=== PATIENT | male | born 1995 | race Caucasian/White ===

== ENCOUNTER 2022-04-28 23:49 | Observation (INO) ==
[2022-04-29 00:58] LABS: Basophils % 0.1 %; Eosinophils # 0.2 K/mcL (0.0-0.6); Eosinophils % 1.2 %; Hematocrit 49.9 % (37.5-50.1); Immature Granulocytes % 0.5 % (0-4); Lymphocytes % 15.3 %; Mean Corpuscular HGB Conc 34.1 g/dL (31.6-35.5); Mean Corpuscular Hemoglobin 29.8 pg (28.0-33.3); Mean Corpuscular Volume 87.4 fL (83.0-100.0); Mean Platelet Volume 9.9 fL (9.4-12.4); Monocytes # 0.6 K/mcL (0.0-1.3); Monocytes % 4.4 %; Neutrophils # 10.1 K/mcL (1.6-8.9); Platelet Count 227 K/mcL (140-400); Red Blood Count 5.71 M/mcL (4.19-5.50); Red Cell Distribution Width 12.1 % (11.5-14.5); Segmented Neutrophils % 78.5 %; White Blood Count 12.9 K/mcL (4.3-11.1)
[2022-04-29 01:01] LABS: BUN/Creatinine Ratio 17 (6-26); Blood Urea Nitrogen 17 mg/dL (6-20); Calcium 9.3 mg/dL (8.6-10.3); Carbon Dioxide 25 mEq/L (23-29); Chloride 100 mEq/L (98-107); Glucose 107 mg/dL (70-105); Osmolality,Calculated 278 (280-300); Potassium 4.1 mEq/L (3.5-5.1); Sodium 133 mEq/L (136-145)
[2022-04-29] MEDS ORDERED: Iopamidol - 370 500 ML MLS IVP ONE (02:07)
[2022-04-29] MEDS ORDERED: Ketorolac 30 MG/ML VIAL IVP ONE (02:09)
[2022-04-29] MEDS ORDERED: *HR* FentaNYL (PF) 100 MCG/2 ML VIAL IVP ONE (02:09)
[2022-04-29] MEDS ORDERED: Vancomycin (wt based) 1,000 MG VIAL IV ONE (02:09)
[2022-04-29] MEDS ORDERED: Vancomycin 1,500 MG/265 ML IV.SOLN IVPB ONE (02:20)
[2022-04-29] MEDS ORDERED: 0.9 % Sodium Chloride 1,000 ML IVC ONE (05:25)
[2022-04-29] MEDS ORDERED: cefTRIAXone 1,000 MG in Water for inj. (sterile) 10 ML IVP ONE (05:45)
[2022-04-29] MEDS ORDERED: Tdap (Boostrix) Vaccine 0.5 ML SYRINGE IM ONE (08:11)
[2022-04-29] MEDS ORDERED: Ondansetron 4 MG/2 ML VIAL IVP PRN (08:13)
[2022-04-29] MEDS ORDERED: Acetaminophen 325 MG TABLET PO PRN (08:13)
[2022-04-29] MEDS ORDERED: *HR* OxyCODONE Immed Rel 5 MG TABLET PO PRN ×2 (08:13→12:45)
[2022-04-29] MEDS ORDERED: Naloxone 0.4 MG/ML INJ IVP PRN (08:13)
[2022-04-29] MEDS ORDERED: Famotidine 20 MG/2 ML VIAL IVP ONE (10:26)
[2022-04-29] MEDS ORDERED: Acetaminophen IV 1,000 MG/100 ML BAG IVPB ONE (10:26)
[2022-04-29] MEDS ORDERED: CeFAZolin Syr 2,000MG/20 ML 2,000 MG/20 ML SYRINGE IVPB ONE (10:50)
[2022-04-29] MEDS: Ringers Solution, Lactated 1,000 ML IVC SCH (11:09)
[2022-04-29] MEDS ORDERED: Lidocaine -MPF 2% 5 ML VIAL ONE (11:31)
[2022-04-29] MEDS ORDERED: *HR* FentaNYL (PF) 100 MCG/2 ML VIAL ONE (11:31)
[2022-04-29] MEDS ORDERED: Ondansetron 4 MG/2 ML VIAL ONE (11:31)
[2022-04-29] MEDS ORDERED: *HR* Propofol 200 MG/20 ML VIAL IVP ONE (11:32)
[2022-04-29] MEDS ORDERED: *HR* Midazolam HCl 2 MG/2 ML VIAL ONE (11:32)
[2022-04-29] MEDS ORDERED: *HR* HYDROMORPHONE 2 MG/ML VIAL ONE (12:07)
[2022-04-29] MEDS: *HR* HYDROmorphone (PF) 1 MG/ML SYRINGE IVP PRN ×4 (13:09→13:42)
[2022-04-29] MEDS: Vancomycin 1,500 MG/265 ML IV.SOLN IVPB SCH (18:32)
[2022-04-29] MEDS: levoFLOXacin 750 MG/150 ML 750 MG/150 ML BAG IVPB SCH (21:47)
[2022-04-30] MEDS: Vancomycin 1,500 MG/265 ML IV.SOLN IVPB SCH ×3 (02:46→23:22)
[2022-04-30 04:20] LABS: BUN/Creatinine Ratio 16 (6-26); Blood Urea Nitrogen 11 mg/dL (6-20); Carbon Dioxide 25 mEq/L (23-29); Chloride 102 mEq/L (98-107); Glucose 110 mg/dL (70-105); Magnesium 1.8 mg/dL (1.6-2.6); Osmolality,Calculated 280 (280-300); Potassium 3.9 mEq/L (3.5-5.1); Sodium 135 mEq/L (136-145)
[2022-04-30 04:21] LABS: Basophils % 0.1 %; Hematocrit 45.3 % (37.5-50.1); Immature Granulocytes % 0.3 % (0-4); Lymphocytes % 8.1 %; Mean Corpuscular HGB Conc 33.8 g/dL (31.6-35.5); Mean Corpuscular Hemoglobin 29.1 pg (28.0-33.3); Mean Corpuscular Volume 86.3 fL (83.0-100.0); Mean Platelet Volume 9.7 fL (9.4-12.4); Monocytes # 0.6 K/mcL (0.0-1.3); Monocytes % 4.3 %; Neutrophils # 11.2 K/mcL (1.6-8.9); Platelet Count 222 K/mcL (140-400); Red Blood Count 5.25 M/mcL (4.19-5.50); Red Cell Distribution Width 11.8 % (11.5-14.5); Segmented Neutrophils % 87.2 %; White Blood Count 12.8 K/mcL (4.3-11.1)
[2022-04-30 04:26] LABS: Hemoglobin 15.3 g/dL (12.9-16.9)
[2022-04-30] MEDS: levoFLOXacin 750 MG/150 ML 750 MG/150 ML BAG IVPB SCH (10:22)
[2022-04-30] MEDS: Ringers Solution, Lactated 1,000 ML IVC SCH (16:12)
[2022-04-30 16:49] VITALS: O2SAT 97
[2022-05-01 02:05] LABS: Basophils % 0.3 %; Eosinophils # 0.1 K/mcL (0.0-0.6); Eosinophils % 0.9 %; Immature Granulocytes % 0.4 % (0-4); Lymphocytes # 2.6 K/mcL (0.6-4.6); Lymphocytes % 34.1 %; Mean Corpuscular HGB Conc 33.3 g/dL (31.6-35.5); Mean Corpuscular Hemoglobin 29.2 pg (28.0-33.3); Mean Corpuscular Volume 87.7 fL (83.0-100.0); Mean Platelet Volume 9.6 fL (9.4-12.4); Monocytes # 0.5 K/mcL (0.0-1.3); Monocytes % 6.4 %; Neutrophils # 4.4 K/mcL (1.6-8.9); Platelet Count 200 K/mcL (140-400); Red Blood Count 4.79 M/mcL (4.19-5.50); Red Cell Distribution Width 11.9 % (11.5-14.5); Segmented Neutrophils % 57.9 %; White Blood Count 7.6 K/mcL (4.3-11.1)
[2022-05-01 02:23] LABS: BUN/Creatinine Ratio 23 (6-26); Blood Urea Nitrogen 20 mg/dL (6-20); Calcium 8.3 mg/dL (8.6-10.3); Carbon Dioxide 26 mEq/L (23-29); Chloride 106 mEq/L (98-107); Glucose 99 mg/dL (70-105); Osmolality,Calculated 289 (280-300); Sodium 138 mEq/L (136-145)
[2022-05-01 04:58] VITALS: BP 120/66; PULSE 54; TEMP 97.8
[2022-05-01] MEDS: Vancomycin 1,500 MG/265 ML IV.SOLN IVPB SCH (07:51)
[2022-05-01] MEDS: levoFLOXacin 750 MG/150 ML 750 MG/150 ML BAG IVPB SCH (07:56)
== END 2022-05-01 15:00 | disposition home or self-care (01) ==
LOC: EMEROOARM 23:49 → 4WAOSI 23:49 → SUATTDRO 04-29 10:25
PROVIDERS: ADMIT Pharmacist; ATTEND Internal Medicine